=== PATIENT | female | born 1995 | race Two or more races ===

== ENCOUNTER 2016-11-20 22:45 | Emergency (ER) | payer MEDICAID ==
[2016-11-20] MEDS ORDERED: SULFAMETH/TRIMETH DS 800/160 MG TABLET PO STA (22:58)
[2016-11-20] MEDS ORDERED: CEPHALEXIN 250 MG CAPSULE PO STA (22:58)
[2016-11-20] MEDS ORDERED: CEPHALEXIN 250 MG CAPSULE PO ONE (23:01)
[2016-11-20] MEDS ORDERED: SULFAMETH/TRIMETH DS 800/160 MG TABLET PO ONE (23:01)
[2016-11-20] MEDS ORDERED: ONDANSETRON ODT 4 MG Prepack 2 TL ONE (23:17)
[2016-11-20] MEDS ORDERED: HYDROcod/ACET 5/325 Prepack 6 PO ONE (23:17)
== END 2016-11-20 23:16 | disposition home or self-care (01) ==
DX: L03.114 Cellulitis of left upper limb (principal); R03.0 Elevated blood-pressure reading, without diagnosis of hypertension
CPT/HCPCS: 99283; A9270

== ENCOUNTER 2017-10-10 21:34 | Emergency (ER) | payer MEDICAID ==
[2017-10-10 21:59] LABS: BASOPHILS % (AUTO) 0.3 %; EOSINOPHILS % (AUTO) 0.2 %; HGB - HEMOGLOBIN 13.3 g/dL (12.0-16.0); LYMPHOCYTES # (AUTO) 2.2 10^3/uL (1.5-3.5); LYMPHOCYTES % (AUTO) 20.3 %; MEAN CORPUSCULAR HEMOGLOBIN 28.8 pg (27.0-31.0); MEAN CORPUSCULAR HGB CONC 32.7 g/dL (32.0-36.0); MEAN CORPUSCULAR VOLUME 88.1 fL (81.0-99.0); MEAN PLATELET VOLUME 7.4 fL (7.9-10.8); MONOCYTES % (AUTO) 8.9 %; NEUTROPHILS # (AUTO) 7.6 10^3/uL (1.5-6.6); NEUTROPHILS % (AUTO) 70.3 %; PLT - PLATELET COUNT 321 10^3/uL (130-450); RED BLOOD COUNT 4.62 10^6/uL (4.20-5.40); RED CELL DISTRIBUTION WIDTH 15.1 % (12.0-15.0); WHITE BLOOD COUNT 10.8 x10^3/uL (4.8-10.8)
[2017-10-10 22:13] LABS: ALBUMIN 4.2 g/dL (3.2-5.5); BILIRUBIN,TOTAL 0.3 mg/dL (0.2-1.0); CREATININE 0.8 mg/dL (0.4-1.0); TOTAL PROTEIN 8.3 g/dL (6.7-8.2)
--- NOTE | 2017-10-10 22:14 | XRAY Report ---
EXAM: CHEST RADIOGRAPHY EXAM DATE: 10/10/2017 10:02 PM. CLINICAL HISTORY: Chest pain. COMPARISON: None. TECHNIQUE: 1 view. FINDINGS: Lungs/Pleura: No focal opacities evident. No pleural effusion. No pneumothorax. Mediastinum: Within exam limitations, the cardiomediastinal contour is normal. Other: None. IMPRESSION: No acute intrathoracic plain film abnormality. [facility] Referring Provider Line: [phone] SITE ID: [id number]
[2017-10-10] MEDS ORDERED: POTASSIUM CHLORIDE 20 MEQ TABLET PO STA (22:17)
--- NOTE | 2017-10-10 22:18 | ED Physician Documentation ---
PD HPI CHEST PAIN - Stated complaint Stated Complaint: CHEST PX - Chief complaint Chief Complaint: Cardiac - History obtained from History obtained from: Patient, Friend - History of Present Illness Timing - onset: Today Timing - details: Gradual onset, Still present Quality: Pressure, Tightness Location: Substernal, Left chest Radiation: Left upper extremity - Additional information Additional information: Patient is an 22 year old female with no significant past medical history who is presenting to the emergency department for chest pain. patient states that her symptoms have been going on for the last couple of days. Patient states that she originally thought it was a hangover but her symptoms persisted and today she developed chest pain. Patient took some aspirin this afternoon for the pain. Patient denies any family history of early cardiac disease or blood clots. patient denies any exogenous estrogen use. Review of Systems Constitutional: denies: Fever, Chills Eyes: denies: Decreased vision Ears: denies: Ear pain, Drainage/discharge Nose: reports: Rhinorrhea / runny nose, Congestion Throat: denies: Sore throat Cardiac: reports: Chest pain / pressure. denies: Palpitations, Calf pain Respiratory: denies: Cough, Wheezing GI: reports: Nausea, Diarrhea. denies: Vomiting : reports: Reviewed and negative Skin: denies: Rash, Lesions Musculoskeletal: reports: Back pain, Extremity pain. denies: Neck pain Neurologic: reports: Numbness. denies: Generalized weakness Psychiatric: reports: Anxiety Immunocompromised: denies: Immunocompromised PD PAST MEDICAL HISTORY - Past Medical History Past Medical History: Yes Respiratory: Asthma - Past Surgical History Past Surgical History: Yes HEENT: Tonsil/Adenoidectomy - Present Medications Home Medications: Ambulatory Orders Medication Instructions Recorded Confirmed Cephalexin [Keflex] 500 mg PO QID #30 capsule 11/20/16 Sulfamethoxazole/Trimethoprim 1 each PO BID 7 Days tablet 11/20/16 [Sulfamethoxazole-Tmp Ds Tablet] Ondansetron Odt [Zofran] 4 mg TL Q6H PRN #20 tablet 10/10/17 - Allergies Allergies/Adverse Reactions: Allergies Allergy/AdvReac Type Severity Reaction Status Date / Time amoxicillin Allergy Edema Verified 10/10/17 21:42 - Social History Does the pt smoke?: No Smoking Status: Never smoker Does the pt drink ETOH?: Yes ETOH Use: Liquor Substance Use and Type: Marijuana - Immunizations Immunizations are current?: Yes PD ED PE NORMAL - Vitals Vital signs reviewed: Yes - General General: Alert and oriented X 3, No acute distress, Well developed/nourished - HEENT HEENT: Atraumatic, PERRL, Pharynx benign - Neck Neck: Supple, no meningeal sign, No JVD - Cardiac Cardiac: RRR, No murmur - Respiratory Respiratory: No respiratory distress - Abdomen Abdomen: Soft, Non distended - Derm Derm: Normal color, Warm and dry, No rash - Neuro Neuro: Alert and oriented X 3, No motor deficit, Normal speech PD ED PE EXPANDED - Back Back: Soft tissue tenderness (mild tenderness to left thoracic paraspinal muscles) Results - Vitals Vitals: Vital Signs - 24 hr 10/10/17 10/10/17 10/10/17 21:38 21:46 22:27 Temperature 36.6 C Heart Rate 85 78 Respiratory 18 18 Rate Blood Pressure 150/93 H Blood Pressure 151/92 H [Right] O2 Saturation 100 99 Oxygen O2 Source Room air - EKG (time done) 2143 Rate: Rate (enter#) (77) Rhythm: NSR [place]: Normal Intervals: Normal DE Ischemia: T wave inversion (III) - Labs Labs: Laboratory Tests 10/10/17 10/10/17 10/10/17 21:50 21:50 21:50 WBC 10.8 RBC 4.62 Hgb 13.3 Hct 40.7 MCV 88.1 MCH 28.8 MCHC 32.7 RDW 15.1 H Plt Count 321 MPV 7.4 L Neut # 7.6 H Lymph # 2.2 [place] # 1.0 Eos # 0.0 Baso # 0.0 Absolute Nucleated RBC 0.03 Nucleated RBC % 0.3 Sodium 138 Potassium 3.0 L Chloride 102 Carbon Dioxide 23 Anion Gap 13.0 BUN 6 Creatinine 0.8 Estimated GFR (MDRD) 91 Glucose 103 H Calcium 9.0 Total Bilirubin 0.3 AST 17 ALT 12 Alkaline Phosphatase 65 Troponin I < 0.04 Total Protein 8.3 H Albumin 4.2 Globulin 4.1 Albumin/Globulin Ratio 1.0 Lipase 11 L - Rads (name of study) chest x-ray Radiology: Final report received (normal chest) PD MEDICAL DECISION MAKING - ED course Complexity details: reviewed old records, reviewed results, re-evaluated patient , considered differential, d/w patient ED course: Patient was seen and examined at bedside. ekg was performed and was nsr. labs were drawn and chest x-ray was ordered. Patient's diagnostics were within normal limits aside from a low potassium which was replaced. Patient had a HEART score and PERC score of 0. Patient required no further work up and was stable for discharge with outpatient follow up. Departure - Departure Disposition: Home, Self Care Clinical Impression: Atypical chest pain Condition: Good Instructions: ED Chest Pain Atypical Unkn Cause Follow-Up: primary,care provider [Other] - Within 1 week Prescriptions: Ondansetron Odt [Zofran] 4 mg TL Q6H PRN #20 tablet PRN Reason: Nausea / Vomiting Comments: Your diagnostics today were within normal limits. there is no acute cardiac or pulmonary abnormality. Your symptoms are likely muscluloskelatal or a reaction to stress and anxiety. You should take motrin or tylenol as needed for pain. You are being precribed zofran if your develop nausea. You should follow up with your doctor for further evaluation if your symptoms persist. You may return to the emergency department at any time for new worsening or uncontrollable symptoms.
[2017-10-10] MEDS ORDERED: IBUPROFEN 600 MG TABLET PO STA (22:23)
[2017-10-10 22:28] VITALS: BP 150/93
== END 2017-10-10 22:38 | disposition home or self-care (01) ==
LOC: ED 21:34
DX: R07.89 Other chest pain (principal); J45.909 Unspecified asthma, uncomplicated
CPT/HCPCS: 36415; 71045; 80053; 83690; 84484; 85025; 93005; 99283; 99284; A9270

== ENCOUNTER 2018-05-13 12:12 | Emergency (ER) | payer MEDICAID, OTHER ==
[2018-05-13] MEDS ORDERED: BUFFERED LIDOCAINE 10 ML SYRINGE SUBQ ONE (13:38)
[2018-05-13] MEDS ORDERED: TETANUS/DIPHTHERIA/PERTUSSIS 0.5 ML SYRINGE IM ONE (13:38)
--- NOTE | 2018-05-13 13:40 | ED Physician Documentation ---
PD HPI UPPER EXT INJURY - Stated complaint Stated Complaint: FINGER LACERATION - Chief complaint Chief Complaint: Laceration - History obtained from History obtained from: Patient - History of Present Illness Location: Left (She cut the left small finger at work today while cutting watermelon. Tetanus is not up-to-date.) Review of Systems Constitutional: reports: Reviewed and negative Cardiac: reports: Reviewed and negative Respiratory: reports: Reviewed and negative PD PAST MEDICAL HISTORY - Past Medical History Respiratory: Asthma - Past Surgical History Past Surgical History: Yes HEENT: Tonsil/Adenoidectomy - Present Medications Home Medications: Ambulatory Orders Medication Instructions Recorded Confirmed Cephalexin [Keflex] 500 mg PO QID #30 capsule 11/20/16 Sulfamethoxazole/Trimethoprim 1 each PO BID 7 Days tablet 11/20/16 [Sulfamethoxazole-Tmp Ds Tablet] Ondansetron Odt [Zofran] 4 mg TL Q6H PRN #20 tablet 10/10/17 - Allergies Allergies/Adverse Reactions: Allergies Allergy/AdvReac Type Severity Reaction Status Date / Time amoxicillin Allergy Edema Verified 05/13/18 12:35 - Social History Does the pt smoke?: No Smoking Status: Never smoker Does the pt drink ETOH?: Yes - Immunizations Immunizations are current?: Yes PD ED PE NORMAL - Vitals Vital signs reviewed: Yes - General General: Alert and oriented X 3, No acute distress - Extremities Extremities: Other (She is a 1.2 cm laceration on the palmar surface of the left small finger On the radial side just distal to the DIP without distal neurovascular compromise.) - Neuro Neuro: Alert and oriented X 3, Normal speech Results - Vitals Vitals: Vital Signs - 24 hr 05/13/18 12:29 Temperature 36.8 C Heart Rate 70 Respiratory 16 Rate Blood Pressure 107/65 O2 Saturation 99 Oxygen O2 Source Room air Procedures - Laceration (location) L 5th finger Length in cm: 1.2 Wound type: Linear Neurovascular status: Sensory intact, Motor intact, Vascular intact Anesthesia: Lidocaine 1%, With bicarb Wound Preparation: Hibiclens, Irrigated copiously NS Skin layer closure: Nylon, Interrupted, Size #-0 - enter number (5-0), Sutures - enter # (3) Other: Patient tolerated well, No complications, Neurovascular intact, Tetanus booster given Complexity: Simple PD MEDICAL DECISION MAKING - Sepsis Event Vital Signs: Vital Signs - 24 hr 05/13/18 12:29 Temperature 36.8 C Heart Rate 70 Respiratory 16 Rate Blood Pressure 107/65 O2 Saturation 99 Oxygen O2 Source Room air Departure - Departure Disposition: 01 Home, Self Care Clinical Impression: Laceration Condition: Good Record reviewed to determine appropriate education?: Yes Instructions: ED Laceration Hand Comments: Come back for any signs of infection which would include: Redness, swelling, drainage, increased pain, or fevers. Follow-up with your physician in 10-14 days for suture removal.
[2018-05-13] MEDS ORDERED: BACITRACIN OINT TOP ONE (14:11)
[2018-05-13 14:22] VITALS: BP 110/65
== END 2018-05-13 14:24 | disposition home or self-care (01) ==
LOC: ED 12:12
DX: S61.217A Laceration without foreign body of left little finger without damage to nail, initial encounter (principal); W26.0XXA Contact with knife, initial encounter; Y93.G1 Activity, food preparation and clean up; Y99.0 Civilian activity done for income or pay; Z23 Encounter for immunization
CPT/HCPCS: 12001; 90471; 90715; 99282; 99283; A9270

== ENCOUNTER 2018-06-13 06:49 | Emergency (ER) | payer SELFPAY ==
[2018-06-13 06:58] VITALS: BP 128/70
--- NOTE | 2018-06-13 07:20 | ED Physician Documentation ---
PD HPI ABD PAIN - Stated complaint Stated Complaint: ABD PX - Chief complaint Chief Complaint: Abd Pain - History obtained from History obtained from: Patient - History of Present Illness Timing - onset: How many hours ago (1) Timing - duration: Hours (1) Timing - details: Abrupt onset, Still present, Constant, Still present in ED Pain level max: 8 Pain level now: 8 Quality: Sharp Location: Epigastric Radiation: Other (lower abdomen) Improved by: Other (nothing; pt has not tried anything) Worsened by: Other (nothing) Associated symptoms: Nausea. No: Fever, Vomiting, Diarrhea, Constipation, Dysuria, Chest pain, Near syncope / syncope, Loss of appetite Similar symptoms before: Has not had sx before Recently seen: Not recently seen - Additional information Additional information: Pt complained of epigastric pain at 0600 today. She stated she was already awake when this occurred. Last meal was PB&J sandwich at 10pm; Lunch yesterday was fried chicken with mac&cheese and corn. Denies any recent injury, illness, travel or sick contacts. Denies taking NSAIDS or caffeine nor alcohol. Review of Systems Ten Systems: 10 systems reviewed and negative Constitutional: denies: Fever, Chills, Weight Loss Cardiac: denies: Chest pain / pressure Respiratory: denies: Dyspnea, Cough GI: reports: Abdominal Pain, Nausea. denies: Abdominal Swelling, Constipation, Diarrhea : reports: Dysuria, Frequency, LMP (june 08), Vaginal bleeding (still with menses) Neurologic: denies: Generalized weakness PD PAST MEDICAL HISTORY - Past Medical History Past Medical History: Yes Cardiovascular: None Respiratory: Asthma Neuro: None Endocrine/Autoimmune: None GI: None MATERIALS SCHEDULER: None : None HEENT: None Psych: None Musculoskeletal: None Derm: None - Past Surgical History Past Surgical History: Yes HEENT: Tonsil/Adenoidectomy - Present Medications Home Medications: Ambulatory Orders Medication Instructions Recorded Confirmed Cephalexin [Keflex] 500 mg PO QID #30 capsule 11/20/16 Sulfamethoxazole/Trimethoprim 1 each PO BID 7 Days tablet 11/20/16 [Sulfamethoxazole-Tmp Ds Tablet] Ondansetron Odt [Zofran] 4 mg TL Q6H PRN #20 tablet 10/10/17 - Allergies Allergies/Adverse Reactions: Allergies Allergy/AdvReac Type Severity Reaction Status Date / Time amoxicillin Allergy Edema Verified 06/13/18 06:58 - Social History Does the pt smoke?: No Smoking Status: Never smoker Does the pt drink ETOH?: Yes Does the pt have substance abuse?: No - Immunizations Immunizations are current?: Yes - POLST Patient has POLST: No PD ED PE NORMAL - Vitals Vital signs reviewed: Yes - General General: Alert and oriented X 3, No acute distress, Well developed/nourished - HEENT HEENT: Moist mucous membranes, Other (nonicteric sclera) - Neck Neck: Supple, no meningeal sign - Cardiac Cardiac: RRR, No murmur - Respiratory Respiratory: No respiratory distress, Clear bilaterally - Abdomen Abdomen: Normal bowel sounds, Soft, Non distended, Other (mild epigastric tenderness to palpation. No Barajas's. No McBurney's) - Back Back: No CVA TTP - Derm Derm: Normal color, Warm and dry, No rash - Extremities Extremities: No deformity - Neuro Neuro: Alert and oriented X 3 - Psych Psych: Normal mood, Normal affect Results - Vitals Vitals: Vital Signs - 24 hr 06/13/18 06:56 Temperature 36.9 C Heart Rate 89 Respiratory 16 Rate Blood Pressure 128/70 O2 Saturation 100 Oxygen O2 Source Room air PD MEDICAL DECISION MAKING - ED course Complexity details: re-evaluated patient (0800 Awaiting lab tests to be done. 0922 Informed of labs. States epigastric pain is better. Will try apple juice. 1005 Tolerated oral fluid challenge. Denies any pain nor nausea. Discussed outpt treatment: clear liquids today, then BRAT diet and later bland diet. Avoid caffeine, spicy, greasy foods. otc pepcid or tums. Follow up w/ PCP and GI referral if needed. Pt expressed understanding.), considered differential (gastritis, GERD, pancreatitis, gallbladder ds), d/w patient Departure - Departure Disposition: 01 Home, Self Care Clinical Impression: Abdominal pain Qualifiers: Abdominal location: epigastric Qualified Code(s): R10.13 - Epigastric pain Condition: Good Instructions: Abdominal Pain, ED PUD Vs Gastritis Comments: CLEAR LIQUIDS TODAY. THEN B.R.A.T. DIET (BANANAS, RICE, APPLE SAUCE, TOAST). IF TOLERATE ADVANCE TO BLAND DIET TONIGHT. AVOID SPICY, GREASY, FATTY FOODS. TAKE OTC PEPCID DAILY AND NEEDED TUMS. FOLLOW UP W/ YOUR PCP FOR REEVALUATION AND G.I. REFERRAL IF NEEDED. IF WORSE RETURN TO THE E.R.
[2018-06-13 08:11] LABS: BILIRUBIN,URINE NEGATIVE (NEGATIVE); GLUCOSE, URINE (UA) NEGATIVE (NEGATIVE); KETONES,URINE (UA) NEGATIVE (NEGATIVE); LEUKOCYTE ESTERASE, URINE NEGATIVE (NEGATIVE); NITRITE,URINE NEGATIVE (NEGATIVE); OCCULT BLOOD,URINE MODERATE (NEGATIVE); PROTEIN,URINE 30 mg/dL (NEGATIVE); UROBILINOGEN,URINE 0.2 (NORMAL) E.U./dL (NORMAL)
[2018-06-13 08:14] LABS: BASOPHILS % (AUTO) 0.3 %; EOSINOPHILS % (AUTO) 0.5 %; HGB - HEMOGLOBIN 14.2 g/dL (12.0-16.0); LYMPHOCYTES # (AUTO) 1.4 10^3/uL (1.5-3.5); LYMPHOCYTES % (AUTO) 19.3 %; MEAN CORPUSCULAR HEMOGLOBIN 29.7 pg (27.0-31.0); MEAN CORPUSCULAR HGB CONC 33.7 g/dL (32.0-36.0); MEAN CORPUSCULAR VOLUME 88.1 fL (81.0-99.0); MEAN PLATELET VOLUME 7.2 fL (7.9-10.8); MONOCYTES # (AUTO) 0.4 10^3/uL (0.0-1.0); MONOCYTES % (AUTO) 6.3 %; NEUTROPHILS # (AUTO) 5.1 10^3/uL (1.5-6.6); NEUTROPHILS % (AUTO) 73.6 %; PLT - PLATELET COUNT 324 10^3/uL (130-450); RED BLOOD COUNT 4.79 10^6/uL (4.20-5.40); RED CELL DISTRIBUTION WIDTH 15.8 % (12.0-15.0)
[2018-06-13 08:16] LABS: CLARITY,URINE CLEAR (CLEAR)
[2018-06-13 08:20] LABS: HCG UR QUAL NEGATIVE
[2018-06-13 08:41] LABS: RBC,URINE 0-5 /HPF (0-5)
[2018-06-13 08:42] LABS: BACTERIA,URINE Moderate /HPF (None Seen); SQUAMOUS EPITHELIAL CELL,UR MOD Squamous (<= Few)
[2018-06-13 08:44] LABS: ALBUMIN 4.5 g/dL (3.2-5.5); ALBUMIN/GLOBULIN RATIO 1.2 (1.0-2.2); ALKALINE PHOSPHATASE 59 IU/L (42-121); ALT ALANINE AMINOTRANSFERASE 13 IU/L (10-60); AST ASPARTATE AMINOTRANSFERASE 18 IU/L (10-42); BILIRUBIN,TOTAL < 0.2 mg/dL (0.2-1.0); BUN - BLOOD UREA NITROGEN 11 mg/dL (6-20); CARBON DIOXIDE - CO2 25 mmol/L (21-32); CHLORIDE 104 mmol/L (101-111); CREATININE 0.7 mg/dL (0.4-1.0); GFR - MDRD 105 (>89); GLUCOSE 102 mg/dL (70-100); LIPASE 25 U/L (22-51); SODIUM 138 mmol/L (135-145); TOTAL PROTEIN 8.2 g/dL (6.7-8.2)
== END 2018-06-13 10:38 | disposition home or self-care (01) ==
LOC: ED 06:49
DX: R10.13 Epigastric pain (principal)
CPT/HCPCS: 36415; 80053; 81001; 81003; 81025; 83690; 85025; 87086; 99283